=== PATIENT | male | born 1980 | race Caucasian/White ===

== ENCOUNTER 2018-02-08 13:53 | Emergency (ER) | payer OTHER ==
[~2018-02-08] VITALS: Ht 170.2 cm; Wt 68.0 kg
[2018-02-08] MEDS ORDERED: BACTRIM DS1 TAB PO (14:41)
[2018-02-08] MEDS ORDERED: CEPHALEXIN500 M1 PO (14:41)
[2018-02-08 14:55] VITALS: BP 135/77
== END 2018-02-08 14:55 | disposition home or self-care (01) | DRG 914 ==
LOC: ED 13:53
PROC: 3E0T3BZ Introduction of Anesthetic Agent into Peripheral Nerves and Plexi, Percutaneous Approach (ICD-10-PCS; principal; 2018-02-08)
DX: S61.241A Puncture wound with foreign body of left index finger without damage to nail, initial encounter (principal); W45.8XXA Other foreign body or object entering through skin, initial encounter; Y93.89 Activity, other specified; Y92.89 Other specified places as the place of occurrence of the external cause; Y99.0 Civilian activity done for income or pay